=== PATIENT | female | born 1995 | race African-American/Black ===

== ENCOUNTER 2019-05-08 07:19 | Emergency (ER) | payer BC ==
[2019-05-08] MEDS ORDERED: Clindamycin CAP* 150 MG PO ONE (07:33)
[2019-05-08] MEDS ORDERED: oxyCODONE/Acetamin 5/325 MG* TAB PO ONE (07:34)
--- NOTE | 2019-05-08 07:34 | ED ---
Complex/Multi-Sys Presentation - HPI Summary HPI Summary: Patient is a 23 y/o F presenting to ED with complaints of tooth ache at 11th tooth. She had a root canal two months ago. However, she has not been able to return to dentist for follow-up appointment due to scheduling conflicts. She notes that last night, she was eating and had a "fake piece" of her tooth come out. Afterwards, she experience a toothache. On triage, pain is rated 10/10 and it is noted that eating aggravates Sx. Pain has been constant since onset. She states that ibuprofen and Tylenol has not alleviated Sx. She notes that she has a follow up with her dentist next week. Patient had washed out her mouth with mouthwash. Home medications and allergies are reviewed. - History Of Current Complaint Chief Complaint: EDDentalPain Time Seen by Provider: 05/08/19 07:28 Hx Obtained From: Patient Onset/Duration: Lasting Days, Still Present Timing: Constant, Days Severity Currently: Severe Severity Initially: Severe Location: Pain At: - 11th tooth Aggravating Factor(s): eating Alleviating Factor(s): nothing Associated Signs And Symptoms: Positive: Other - pain at 11th tooth. Negative: Fever - on vitals, temp is 97.9 F - Allergies/Home Medications Allergies/Adverse Reactions: Allergies Allergy/AdvReac Type Severity Reaction Status Date / Time No Known Allergies Allergy Verified 05/08/19 07:24 PMH/Surg Hx/FS Hx/Imm Hx Endocrine/Hematology History: Denies: Hx Diabetes Cardiovascular History: Denies: Hx Hypertension Infectious Disease History: No Infectious Disease History: Denies: Traveled Outside the [place] in Last 30 Days - Family History Known Family History: Negative: Hypertension, Diabetes - Social History Alcohol Use: Rare Substance Use Type: Reports: None Smoking Status (MU): Never Smoked Tobacco Review of Systems Negative: Fever - on vitals, temp is 97.9 F Positive: Dental Pain - 11th tooth All Other Systems Reviewed And Are Negative: Yes Physical Exam - Summary Physical Exam Summary: Appearance: Well appearing, no pain distress Skin: warm, dry, reflects adequate perfusion Head/face: normal Eyes: EOMI, CARY ENT: tenderness over 11th tooth, no swelling Neck: supple, non-tender Respiratory: CTA, breath sounds present Cardiovascular: RRR, pulses symmetrical Abdomen: non-tender, soft Musculoskeletal: normal, strength/ROM intact Neuro: normal, sensory motor intact, A&Ox3 Triage Information Reviewed: Yes Vital Signs On Initial Exam: Initial Vitals Temp Pulse Resp BP Pulse Ox 97.9 F 116 19 145/93 98 05/08/19 07:22 05/08/19 07:22 05/08/19 07:22 05/08/19 07:22 05/08/19 07:22 Vital Signs Reviewed: Yes Diagnostics - Vital Signs Vital Signs Temp Pulse Resp BP Pulse Ox 05/08/19 07:22 97.9 F 116 19 145/93 98 - Laboratory Lab Statement: Any lab studies that have been ordered have been reviewed, and results considered in the medical decision making process. Complex Multi-Symp Course/Dx Course Of Treatment: Patient is a 23 y/o F presenting to ED with complaints of tooth ache at 11th tooth. She had a root canal two months ago. However, she has not been able to return to dentist for follow-up appointment. She notes that last night, she experienced a toothache. Pain has been constant since onset. She states that ibuprofen and Tylenol has not alleviated Sx. On physical exam, tenderness over 11th tooth, no swelling. During ED course, patient received Percocet 5/325 tab PO and cleocin cap 300 mg PO. Patient was discharged to home and will follow up with her dentist. - Diagnoses Provider Diagnoses: Toothache Discharge - Sign-Out/Discharge Documenting (check all that apply): Patient Departure - DISCHARGE Patient Received Moderate/Deep Sedation with Procedure: No - Discharge Plan Condition: Stable Disposition: HOME Prescriptions: Clindamycin Cap(NF) [Clindamycin Cap 300 mg Cap(NF)] 300 mg PO Q6H #30 cap Ibuprofen TAB* [Motrin TAB* 600 MG] 600 mg PO Q8H PRN #15 tab MDD 3 PRN Reason: Pain Oxycodone HCl/Acetaminophen [Percocet 5-325 mg Tablet] 1 each PO TID #6 tablet MDD 3 Patient Education Materials: Toothache (ED) Referrals: [facility] [Outside] - 1 Week Additional Instructions: PLEASE RETURN TO ED FOR ANY NEW OR WORSENING SYMPTOMS. FOLLOW-UP WITH YOUR DENTIST NEXT WEEK DISCUSSED. - Billing Disposition and Condition Condition: STABLE Disposition: Home - Attestation Statements Document Initiated by Scribe: Yes Documenting Scribe: MARIN COX Provider For Whom Scribe is Documenting (Include Credential): KEN JACOBO MD Scribe Attestation: I, MARIN COX, scribed for KEN JACOBO MD on 05/08/19 at 1233. Scribe Documentation Reviewed: Yes Provider Attestation: The documentation as recorded by the gerriibeMARIN accurately reflects the service I personally performed and the decisions made by me, KEN JACOBO MD Status of Scribe Document: Viewed
[2019-05-08 08:11] VITALS: BP 0/0
== END 2019-05-08 08:30 | disposition home or self-care (01) ==
LOC: ED 07:19
DX: K08.89 Other specified disorders of teeth and supporting structures (principal)
CPT/HCPCS: 99282; A9270-GY